=== PATIENT | female | born 1940 | race African-American/Black ===

== ENCOUNTER 2016-06-18 14:30 | Outpatient (RCR) | payer MEDICARE, BC | END 2016-07-15 | disposition home or self-care (01) | LOC: PTY 14:30 | DX: I89.0 Lymphedema, not elsewhere classified (principal) | CPT/HCPCS: 97110; 97163; 97535; G8978; G8979 ==

== ENCOUNTER 2016-11-02 09:00 | Outpatient (RCR) | payer MEDICARE, BC | END 2016-11-15 | disposition home or self-care (01) | LOC: PTY 09:00 | DX: I89.0 Lymphedema, not elsewhere classified (principal) ==

== ENCOUNTER 2016-11-28 09:30 | Outpatient (RCR) | payer MEDICARE, BC | END 2016-12-15 | disposition home or self-care (01) | LOC: PTY 09:30 | DX: I89.0 Lymphedema, not elsewhere classified (principal) | CPT/HCPCS: 97162; G8978; G8979 ==